=== PATIENT | male | born 1980 | race Caucasian/White ===

== ENCOUNTER 2019-07-04 23:25 | Emergency (ER) | payer OTHER ==
[~2019-07-04] VITALS: Ht 167.6 cm; Wt 62.6 kg
--- NOTE | 2019-07-04 23:35 | NUR ---
TO BED # 07 AMBULATORY
--- NOTE | 2019-07-04 23:35 | NUR ---
38 Y/O MALE BIB SELF FOR RASH AFTER TAKING NEW PRESCRIPTION OF SIMVASTATIN AND NIACIN. NO PAIN AT THIS TIME. NOTED FLUSHED, WARM SKIN THROUGHOUT BODY. ERMD MADE AWARE OF STATUS. SIDE RAILSX1. VSS. WILL CONTINUE TO MONITOR. PMH: HIGH CHOLESTEROL RX: SIMVASTATIN; NIACIN NKDA
[2019-07-04 23:45] VITALS: BP 111/75
[2019-07-05] MEDS ORDERED: predniSONE 20 MG TAB PO ONE (00:35)
[2019-07-05 00:51] VITALS: BP 127/75
--- NOTE | 2019-07-05 00:51 | NUR ---
Patient discharged with v/s stable. Written and verbal after care instructions given and explained. Patient alert, oriented and verbalized understanding of instructions. Ambulatory with steady gait. All questions addressed prior to discharge. ID band removed. Patient advised to follow up with PMD. Rx of BENADRYL, PREDNISONE given. Patient educated on indication of medication including possible reaction and side effects. Opportunity to ask questions provided and answered.
== END 2019-07-05 00:51 | disposition home or self-care (01) ==
LOC: MED 23:25
DX: R20.2 Paresthesia of skin (principal); R21 Rash and other nonspecific skin eruption; T46.7X5A Adverse effect of peripheral vasodilators, initial encounter; Y92.89 Other specified places as the place of occurrence of the external cause
CPT/HCPCS: 99283; J7512; Q0163